=== PATIENT | female | born 1965 | race Two or more races ===

== ENCOUNTER 2024-01-17 05:47 | Emergency (ER) | payer MEDICAID, OTHER ==
[~2024-01-17] VITALS: Ht 157.5 cm; Wt 65.4 kg
[2024-01-17 07:10] LABS: Basophils # (auto) 0.1 10 ^3/uL (0-0.2); Basophils % (auto) 0.9 % (0.0-2.0); Eosinophils # (auto) 0.3 10 ^3/uL (0-0.8); Hematocrit 40.9 % (36.0-46.0); Hemoglobin 14.2 g/dL (12.2-16.2); Lymphocytes # (auto) 3.1 10 ^3/uL (0.4-5.4); Lymphocytes % (auto) 34.3 % (10.0-50.0); Mean Corpuscular Hemoglobin 31.5 pg (28.0-32.0); Mean Corpuscular Hgb Conc. 34.7 g/dL (32.0-36.0); Mean Corpuscular Volume 90.7 fL (80.0-100.0); Monocytes # (auto) 0.6 10 ^3/uL (0-1.3); Monocytes % (auto) 6.5 % (0.0-12.0); Neutrophils % (auto) 55.3 % (37.0-80.0); Nucleated Red Blood Cells % 0.1 %; Red Blood Cells 4.52 10^6/uL (4.0-5.20); Red Cell Distribution Width 12.9 % (11.8-14.3)
[2024-01-17 07:17] LABS: Urine Bacteria FEW /hpf (None Seen); Urine Blood Negative /uL (Negative); Urine Clarity Clear (Clear); Urine Protein, UAD Negative (Negative); Urine Specific Gravity 1.004 (1.001-1.035); Urine Urobilinogen Normal (Negative); Urine WBC 5 /hpf (0 - 5)
[2024-01-17 07:18] LABS: Urine Color STRAW (Yellow)
[2024-01-17] MEDS: MAALOX PLUS or MAALOX 30 ML PO ONE (07:21)
[2024-01-17] MEDS: SODIUM CHLORIDE 0.9% 1,000 ML IVB ONE (07:22)
[2024-01-17 07:25] LABS: Alanine Aminotransferase 58 U/L (7-40); Albumin 4.4 g/dL (3.2-4.8); Alkaline Phosphatase 65 U/L (46-116); Anion Gap 6 (5-15); Aspartate Aminotransferase 20 U/L (13-40); BUN/Creatinine Ratio 19.7 (10.0-20.0); Blood Urea Nitrogen 14 mg/dL (9-23); Calcium 9.6 mg/dL (8.7-10.4); Carbon Dioxide 24 mmol/L (20-30); Chloride 110 mmol/L (98-107); Glucose 107 mg/dL (74-106); Lipase 37 U/L (12-53); Potassium 3.9 mmol/L (3.5-5.1); Sodium 140 mmol/L (136-145)
[2024-01-17 07:26] LABS: Bilirubin, Total 0.2 mg/dL (0.2-1.0); Total Protein 6.9 g/dL (5.7-8.2)
[2024-01-17] MEDS: KETOROLAC TROMETH 30 MG/ML 1ML VIAL IV ONE (07:28)
[2024-01-17] MEDS: ONDANSETRON HCL 4 MG/2 ML VIAL IV ONE (07:28)
[2024-01-17] MEDS: FAMOTIDINE (10MG/ML) 2ML VL IV ONE (07:28)
[2024-01-17 07:31] LABS: INR 0.97 (0.9-1.15); Partial Thromboplastin Time 28.4 SEC (24.5-34.5); Prothrombin Time 10.3 sec (9.3-11.8)
[2024-01-17] MEDS: MORPHINE SULFATE 4 MG/ML SYR/VIAL IV ONE (07:31)
[2024-01-17] MEDS ORDERED: FAMO20TA10 PO (08:41)
[2024-01-17] MEDS ORDERED: MAA30LQ GT (08:41)
[2024-01-17] MEDS ORDERED: ZOFR4T PO (08:41)
[2024-01-17 09:02] VITALS: BP 132/69; PULSE 60; RESP 17; TEMP 97.9; O2SAT 99
== END 2024-01-17 09:03 | disposition home or self-care (01) ==
LOC: ER 05:47
DX: K30 Functional dyspepsia (principal)
CPT/HCPCS: 36415; 74176; 80053; 81001; 83690; 85025; 85610; 85730; 96361; 96374; 96375; 99285; J1885; J2270; J2405; J3490; J7030